=== PATIENT | female | born 1975 | race Hispanic/Latino ===

== ENCOUNTER 2021-01-07 20:49 | Emergency (ER) | payer SELFPAY ==
[2021-01-07 21:46] LABS: Urine Blood Negative (Negative); Urine Glucose Trace (Negative); Urine Protein Negative (Negative); Urine pH 8.5 (5.0-7.0)
[2021-01-07 22:28] LABS: Urine Amorphous Sediment 3+ /HPF (NONE SEEN); Urine Bacteria <20 /HPF (<20); Urine RBC <5 /HPF (NONE SEEN)
[2021-01-07 23:04] LABS: Absolute Lymphocytes (CBC) 2.3 K/uL (0.7-4.9); Basophils % 0.4 % (0-1.3); Hematocrit 37.6 % (36.0-45.0); Lymphocytes % 27.8 % (15.3-44.8); MPV 9.4 fL (7.6-11.3)
[2021-01-07] MEDS ORDERED: ONDANSETRON 4 MG/2 ML VIAL ONE (23:05)
[2021-01-07] MEDS ORDERED: KETOROLAC 30 MG/ML INJ ONE (23:06)
[2021-01-07] MEDS ORDERED: NA CHLORIDE 0.9% 1,000 ML ONE (23:06)
[2021-01-07 23:15] LABS: ALT/SGPT 29 U/L (12-78); AST/SGOT 20 U/L (15-37); Albumin 3.5 g/dL (3.4-5.0); Alkaline Phosphatase 86 U/L (45-117); BUN Blood Urea Nitrogen 9 mg/dL (7-18); Bicarbonate 29 mmol/L (21-32); Bilirubin Direct < 0.1 mg/dL (0-0.2); Bilirubin Total 0.1 mg/dL (0.2-1.0); Glucose Level 200 mg/dL (74-106); Lipase 91 U/L (73-393); Protein, Total 7.2 g/dL (6.4-8.2); Sodium Level 141 mmol/L (136-145)
--- NOTE | 2021-01-08 00:32 | ER ---
Nurse's Notes [facility] Name: Casandra Martinez Age: 45 yrs Sex: Female : 1975 Arrival Date: 01/07/2021 Time: 20:51 Bed 6 Private MD: Diagnosis: Abdominal pain, Generalized Presentation: 01/07 20:56 Chief complaint: Patient states: L flank pain radiating to the abdominal area x 2 - 3 ca1 days. Denies urinary s/s. Denies Hx of Kidney stones. Reports nausea. Coronavirus screen: Client denies travel out of the [place] in the last 14 days. nausea, Client presents with at least one sign or symptom that may indicate coronavirus-19. Standard/surgical mask placed on the client. Provider contacted for isolation considerations. Ebola Screen: Patient negative for fever greater than or equal to 101.5 degrees Fahrenheit, and additional compatible Ebola Virus Disease symptoms Patient denies exposure to infectious person. Patient denies travel to an Ebola-affected area in the 21 days before illness onset. No symptoms or risks identified at this time. Initial Sepsis Screen: Does the patient meet any 2 criteria? No. Patient's initial sepsis screen is negative. Does the patient have a suspected source of infection? No. Patient's initial sepsis screen is negative. Risk Assessment: Do you want to hurt yourself or someone else? Patient reports no desire to harm self or others. Onset of symptoms was January 07, 2021. 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 Flu vaccine is not up to date. - Social history:: Smoking status: Patient denies any tobacco usage or history of. Screenin:50 Abuse screen: Denies threats or abuse. Nutritional screening: No deficits noted. ea Tuberculosis screening: No symptoms or risk factors identified. Fall Risk None identified. Assessment: 22:50 General: Appears in no apparent distress. Behavior is calm, cooperative, appropriate ea for age. Pain: Complains of pain in back, epigastric. Neuro: Level of Consciousness is awake, alert, obeys commands, Oriented to person, place, time. Respiratory: Airway is patent Respiratory effort is even, unlabored, Respiratory pattern is regular, symmetrical. Derm: Skin is pink, warm \T\ dry. 01/08 00:43 Reassessment: Patient and/or family updated on plan of care and expected duration. Pain ea level reassessed. Patient is alert, oriented x 3, equal unlabored respirations, skin warm/dry/pink. Discharge instruction given to patient verbalized the understanding of instruction. Vital Signs: 01/07 20:56 BP 126 / 92; Pulse 86; Resp 18; Temp 98(TE); Pulse Ox 100% on R/A; Pain 7/10; ca1 22:52 BP 124 / 64; Pulse 83; Resp 18 S; Pulse Ox 99% on R/A; ad5 ED Course: 20:51 Patient arrived in ED. wm 20:58 Triage completed. ca1 20:58 Arm band placed on right wrist. ca1 21:30 Urine collected: clean catch specimen, clear. bb 21:39 Ya Vaughn FNP-C is PHCP. kb 21:39 Bret Wilkes MD is Attending Physician. kb 21:48 Lydia Lance RN is Primary Nurse. ea 22:50 Inserted saline lock: 20 gauge in right antecubital area, using aseptic technique. ea 22:51 Patient has correct armband on for positive identification. Bed in low position. Call ea light in reach. Side rails up X2. 23:09 CT Abd/Pelvis - IV Contrast Only In Process Unspecified. EDMS 01/08 00:42 No provider procedures requiring assistance completed. IV discontinued, intact, ea bleeding controlled, No redness/swelling at site. Pressure dressing applied. Administered Medications: 01/07 22:49 Drug: Zofran (Ondansetron) 4 mg Route: IVP; Site: right antecubital; ea 01/08 00:44 Follow up: Response: No adverse reaction ea 01/07 22:49 Drug: Ketorolac 15 mg Route: IVP; Site: right antecubital; ea 01/08 00:44 Follow up: Response: No adverse reaction ea 01/07 22:49 Drug: NS 0.9% 1000 ml Route: IV; Rate: 1000 ml; Site: right antecubital; ea 01/08 00:44 Follow up: Response: No adverse reaction; IV Status: Completed infusion; IV Intake: ea 1000ml Intake: 00:44 IV: 1000ml; Total: 1000ml. ea Outcome: 00:31 Discharge ordered by . shashi 00:42 Discharged to home ambulatory, with family. ea 00:42 Condition: stable 00:42 Discharge instructions given to patient, Instructed on discharge instructions, follow up and referral plans. medication usage, Demonstrated understanding of instructions, follow-up care, medications, Prescriptions given X 2. 00:44 Patient left the ED. ea Signatures: Dispatcher [employer] EDMS Ya Vaughn, BREAST SPLITTER-C BREAST SPLITTER-Marixa Dupree RN RN bb Lydia Lance RN RN Jaida Atkinson RN RN ca1 Gus Stevenson Wendy Corrections: (The following items were deleted from the chart) 01/07 20:59 20:58 PSHx: None; ca1 ca1
--- NOTE | 2021-01-08 00:32 | EDPHYS ---
Physician Documentation [facility] Name: Casandra Martinez Age: 45 yrs Sex: Female : 1975 Arrival Date: 01/07/2021 Time: 20:51 Bed 6 Private MD: ED Physician Bret Wilkes HPI: 01/08 00:37 This 45 yrs old Female presents to ER via Ambulatory with complaints of Flank kb Pain. 00:37 The pain radiates to the abdomen. The patient has not experienced similar symptoms in kb the past. The patient has not recently seen a physician. 00:37 The patient complains of pain in the left flank. Onset: The symptoms/episode kb began/occurred 2 day(s) ago. Modifying factors: The symptoms are alleviated by nothing. the symptoms are aggravated by nothing. Associated signs and symptoms: Pertinent positives: nausea, Pertinent negatives: diarrhea, dizziness, dysuria, fever, urinary frequency, headache, hematuria, pain radiating to the lower extremities, vomiting. Severity of pain: At its worst the pain was mild in the emergency department the pain is unchanged. 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 Flu vaccine is not up to date. - Social history:: Smoking status: Patient denies any tobacco usage or history of. ROS: 01/08 00:38 Constitutional: Negative for fever, chills, and weight loss. kb Abdomen/GI: Positive for abdominal pain, nausea, Negative for vomiting, diarrhea, constipation. Back: Positive for flank pain, on the left. All other systems are negative. Exam: 00:39 Constitutional: This is a well developed, well nourished patient who is awake, alert, kb and in no acute distress. Head/Face: Normocephalic, atraumatic. ENT: Moist Mucous membranes Cardiovascular: Regular rate and rhythm with a normal S1 and S2. No gallops, murmurs, or rubs. No pulse deficits. Respiratory: Respirations even and unlabored. No increased work of breathing, no retractions or nasal flaring. Abdomen/GI: Soft, non-tender. No distention Back: No spinal tenderness. No costovertebral tenderness. Full range of motion. Skin: Warm, dry with normal turgor. Normal color. MS/ Extremity: Pulses equal, no cyanosis. Neurovascular intact. Full, normal range of motion. Neuro: Awake and alert, GCS 15, oriented to person, place, time, and situation. Moves all extremities. Normal gait. Psych: Awake, alert, with orientation to person, place and time. Behavior, mood, and affect are within normal limits. Vital Signs: 01/07 20:56 BP 126 / 92; Pulse 86; Resp 18; Temp 98(TE); Pulse Ox 100% on R/A; Pain 7/10; ca1 22:52 BP 124 / 64; Pulse 83; Resp 18 S; Pulse Ox 99% on R/A; ad5 MDM: 21:46 Patient medically screened. kb 01/08 00:38 Data reviewed: vital signs, nurses notes. Data interpreted: Pulse oximetry: on room air kb is 99 %. Interpretation: normal. Counseling: I had a detailed discussion with the patient and/or guardian regarding: the historical points, exam findings, and any diagnostic results supporting the discharge/admit diagnosis, lab results, radiology results, the need for outpatient follow up, a family practitioner, to return to the emergency department if symptoms worsen or persist or if there are any questions or concerns that arise at home. 01/07 21:31 Order name: Urine Microscopic Only; Complete Time: 22:31 kb 01/07 21:46 Order name: Urine --Ancillary (enter results); Complete Time: 21:56 bb 01/07 21:46 Order name: Urine Dipstick-Ancillary; Complete Time: 21:47 EDMS 01/07 22:23 Order name: Basic Metabolic Panel; Complete Time: 23:18 kb 01/07 22:23 Order name: CBC with Diff; Complete Time: 23:15 kb 01/07 22:23 Order name: Hepatic Function; Complete Time: 23:18 kb 01/07 21:31 Order name: Urine Dipstick-Ancillary (obtain specimen); Complete Time: 21:45 kb 01/07 21:31 Order name: Urine Test (obtain specimen); Complete Time: 21:45 kb 01/07 22:23 Order name: Lipase; Complete Time: 23:18 kb 01/07 22:23 Order name: IV Saline Lock; Complete Time: 22:49 kb 01/07 22:36 Order name: CT Abd/Pelvis - IV Contrast Only 01/07 22:23 Order name: Labs collected and sent; Complete Time: 22:49 kb Administered Medications: 01/07 22:49 Drug: Zofran (Ondansetron) 4 mg Route: IVP; Site: right antecubital; 01/08 00:44 Follow up: Response: No adverse reaction 01/07 22:49 Drug: Ketorolac 15 mg Route: IVP; Site: right antecubital; ea 01/08 00:44 Follow up: Response: No adverse reaction 01/07 22:49 Drug: NS 0.9% 1000 ml Route: IV; Rate: 1000 ml; Site: right antecubital; ea 01/08 00:44 Follow up: Response: No adverse reaction; IV Status: Completed infusion; IV Intake: ea 1000ml Disposition: 04:21 Co-signature as Attending Physician, Bret Wilkes MD. 7 Disposition Summary: 01/08/21 00:31 Discharge Ordered Location: Home kb Condition: Stable kb Diagnosis - Abdominal pain, Generalized kb Followup: kb - With: Emergency Department - When: As needed - Reason: Worsening of condition Followup: kb - With: Private Physician - When: 2 - 3 days - Reason: Recheck today's complaints, Continuance of care, Re-evaluation by your physician Discharge Instructions: - Discharge Summary Sheet kb - Abdominal Pain, Adult, [id number] kb Forms: - Medication Reconciliation Form kb - Thank You Letter kb - Antibiotic Education kb - Prescription Opioid Use Prescriptions: - Zofran 4 mg Oral Tablet - take 1 tablet by ORAL route every 6 hours As needed; 20 tablet; Refills: 0, kb Product Selection Permitted - Diclofenac Sodium 75 mg Oral tablet,delayed release (DR/EC) - take 1 tablet by ORAL route 2 times per day As needed; 30 tablet; Refills: 0, kb Product Selection Permitted Signatures: Dispatcher [employer] Ya Arnold FNP-C FNP-Ckb Antunez, Elena RN Jaida Grant ea, RN RN ca1 Holmes, Maurice, MD MD 7 Corrections: (The following items were deleted from the chart) 01/07 20:59 20:58 PSHx: None; ca1 ca1
[2021-01-08 00:48] VITALS: TEMP 98
[2021-01-08 00:50] VITALS: BP 124/64; O2SAT 99
--- NOTE | 2021-01-09 16:29 | RAD REPORT ---
EXAM DESCRIPTION: CT - Abdomen Pelvis W Contrast - 01/08/2021 6:48 am CLINICAL HISTORY: Abdominal pain. COMPARISON: None. TECHNIQUE: Axial CT imaging of the abdomen and pelvis performed with intravenous contrast. Reformatt ed coronal and sagittal images reviewed. A dose reduction technique was utilized with automated exposure control according to patient size. FINDINGS: Clear lung bases. Heart is normal in size. Normal liver size and contour. Minimal fatty infiltration. Normal gallbladder, spleen, pancreas, adre nal glands. Normal right and left kidney. Aorta and inferior vena cava appear normal. No retroperiton eal lymphadenopathy. Mesenteric vessels appear normal. Normal stomach and small bowel loops. Normal appendix in the right lower quadrant. Colon appears norm al. Unremarkable bladder. Minimal endometrial fluid. Bilateral ovarian follicular changes. No free fluid. Unremarkable lumbar spine. Intact bony pelvis. Normal hips. IMPRESSION: 1. Minimal fatty liver infiltration. No acute finding within the abdomen. 2. Bilateral ovarian follicular changes. Minimal endometrial fluid.. Electronically signed by: Sneha Segovia DO 01/07/2021 11:35 PM CDT Due to temporary technical issues with the PACS/Fluency reporting system, reports are being signed by the in house radiologists without review as a courtesy to insure prompt reporting. The interpreting radiologist is fully responsible for the content of the report.
== END 2021-01-08 00:44 | disposition home or self-care (01) ==
LOC: ER 20:49
DX: R10.84 Generalized abdominal pain (principal)
CPT/HCPCS: 36415; 74177; 80048; 80076; 81003; 81015; 81025; 82565; 83690; 85025; 96361; 96374; 96375; 99284; J2405; J7030; Q9967